=== PATIENT | female | born 1980 | race Two or more races ===

== ENCOUNTER → 2024-06-09 | Outpatient (CLI) | payer MEDICAID, SELFPAY ==
--- NOTE | 2024-06-09 | XR_ITS ---
Examination: Bilateral wrists 6 views TECHNIQUE: AP oblique lateral each wrist total 6 views Exam date and time: June 09, 2024 1112 hours INDICATIONS: Bilateral wrist pain 6 months FINDINGS: Mild to moderate osteopenia Mild bilateral narrowing radiocarpal intercarpal and carpometacarpal joints. Mild bilateral osteoarthritis first carpometacarpal joints No erosive arthritis. No fractures. No avascular necrosis IMPRESSION: Arthritic change as above
--- NOTE | 2024-06-09 | XR_ITS ---
Examination: Bilateral hands, 6 views. Technique: AP, Oblique, Lateral each hand total 6 views Date and time of exam: June 09, 2024 1106 hours INDICATIONS: Bilateral hand pain 6 months Findings: Moderate juxta-articular bone demineralization Mild diffuse narrowing joints of the wrists and hands No fractures No erosive arthritis Mild osteoarthritis interphalangeal joints IMPRESSION: Mild osteoarthritis No erosive arthritis
== END | disposition home or self-care (01) ==
LOC: CDIM 10:37
PROVIDERS: PCP Nurse Practitioner Gerontology; Referring Provider Nurse Practitioner Gerontology; Visit Provider Nurse Practitioner Gerontology
DX: M19.042 Primary osteoarthritis, left hand (principal); M19.041 Primary osteoarthritis, right hand; M19.032 Primary osteoarthritis, left wrist; M19.031 Primary osteoarthritis, right wrist
CPT/HCPCS: 73110; 73130

== ENCOUNTER 2024-07-22 12:35 | Day surgery (SDC) | payer MEDICAID, SELFPAY ==
[2024-07-21 14:46] VITALS: BMI 35.0
[2024-07-22] VITALS (9 sets, daily range): BP systolic 111–146; BP diastolic 73–86; PULSE 60–74; RESP 13–20; TEMP 36.5–36.7; O2SAT 95–98; BMI 34.7
[2024-07-22] MEDS: RINGERS LACTATED 1000 ML 1,000 ML 125 ML IV (14:28)
[2024-07-22] MEDS: MIDAZOLAM INJ 1 MG/ML VIAL 2 ML (ASD USE ONLY) 2 MG IV (14:34)
[2024-07-22] MEDS: fentaNYL CIT INJ 50 mCg/ML AMP 2ML (ASD USE ONLY) IV (14:36)
--- NOTE | 2024-07-22 15:33 | SUR.PHASEII ---
1453: Pt received in [facility]. Report from Justine WRIGHT. Pt groggy. Easily aroused. Resp even, unlabored. VS stable. No c/o pain, discomfort. 1518: Pt more awake, alert. VS stable. Denies pain. Sitting up tolerating po fluids with no difficulty swallowing and no n/v. 1540: Pt fully awake, oriented. Pt assisted to restroom. Ambulation steady. Pt and daughter stated understanding of discharge instructions. Pt discharged from [facility] in stable condition.
== END 2024-07-22 15:40 | disposition home or self-care (01) ==
PROVIDERS: PCP Physician Assistant; Referring Provider Surgery; Visit Provider Surgery
PROC: 0DBE8ZX Excision of Large Intestine, Via Natural or Artificial Opening Endoscopic, Diagnostic (ICD-10-PCS; CPT 45380; principal; 2024-07-22 14:30)
DX: Z12.11 Encounter for screening for malignant neoplasm of colon (principal)
CPT/HCPCS: 45378; 81025; J2250; J3010; J7120